=== PATIENT | female | born 2000 | race Caucasian/White ===

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

== ENCOUNTER 2021-07-17 14:09 | Emergency (ER) | payer SELFPAY ==
[~2021-07-17] VITALS: Ht 157.5 cm; Wt 46.0 kg
[2021-07-17 14:44] VITALS: BP 102/72
--- NOTE | 2021-07-17 14:51 | NUR ---
BREAK RN. PT AMBULATORY TO RESTROOM WITH STEADY GAIT FOR UA SAMPLE. LAB AT BEDSIDE. RAW FINISH MILL OPERATOR AT BEDSIDE FOR EKG
--- NOTE | 2021-07-17 14:57 | NUR ---
BREAK RN FOR PRIMARY RN KYARA. "I'M HERE FOR MY HEAD, I TOOK SOME PILLS LAST NIGHT, DIDN'T KNOW THE SIDE EFFECTS AND HOW IT WOULD AFFECT ME TODAY WITH THE DRINKING, TOOK ANTI-ANXIETY MED, ABOUT 300MG OF IT. I FELL DOWN LAST NIGHT, DID NOT HIT MY HEAD OR PASS OUT." DENIES SI/HI AT THIS TIME. VSS. URINE COLLECTED AND WALKED TO LAB. AUNT AT BEDSIDE. PER AUNT "SHE TOLD ME SHE TRIED TO COMMIT SUICIDE LAST NIGHT, WE DON'T KNOW WHAT OR HOW MUCH SHE TOOK OF PILLS MIXED WITH ALCOHOL LAST NIGHT." ERP MARYLU PA AWARE OF PT AND AUNT STATEMENTS. PT AWAITING PSYCH EVALUATION. CALL LIGHT IN REACH. FALL PRECAUTIONS IN PLACE.
[2021-07-17] MEDS ORDERED: ACETAMINOPHEN 325 MG TABLET PO ONE (15:00)
[2021-07-17] MEDS ORDERED: KETOROLAC 30 MG/1 ML IM ONE (15:00)
[2021-07-17 15:04] LABS: BASOPHILS % (AUTO) 1 % (0-1); EOSINOPHILS % (AUTO) 2 % (1-7); LYMPHOCYTES % (AUTO) 34 % (22-44); MEAN CORPUSCULAR HGB CONC 32.8 g/dL (32.4-35.8); MEAN PLATELET VOLUME 8.1 fL (7.4-10.4); MONOCYTES % (AUTO) 7 % (2-9); NEUTROPHILS % (AUTO) 56 % (42-75); PLATELET COUNT 324 x10^3/uL (130-400); RED BLOOD COUNT 4.91 x10^6/uL (3.82-5.3)
[2021-07-17 15:09] LABS: ALANINE AMINOTRANSFERASE 18 U/L (12-78); ALBUMIN 3.3 g/dL (3.4-5.0); ANION GAP 5 mmol/L (5-15); CALCIUM 8.5 mg/dL (8.5-10.1); CHLORIDE 109 mmol/L (98-107); CREATININE 0.73 mg/dL (0.55-1.02)
[2021-07-17 15:10] LABS: SALICYLATE LEVEL < 1.7 mg/dL (2.8-20.0)
[2021-07-17 15:14] LABS: ALKALINE PHOSPHATASE 73 U/L (45-117); BILIRUBIN,TOTAL 0.9 mg/dL (0.2-1.0); TOTAL PROTEIN 7.4 g/dL (6.4-8.2)
[2021-07-17 15:26] LABS: AMPHETAMINE SCREEN, URINE Negative (Negative); BARBITURATE SCREEN, URINE Negative (Negative); BENZODIAZEPINE SCREEN, URINE Negative (Negative); CANNABINOID SCREEN, URINE Positive (Negative); COCAINE SCREEN, URINE Negative (Negative); METHADONE SCREEN, URINE Negative (Negative); OPIATE SCREEN, URINE Negative (Negative)
--- NOTE | 2021-07-17 15:38 | NUR ---
REPORT AND CARE BACK TO PRIMARY RN KYARA AT THIS TIME
--- NOTE | 2021-07-17 16:45 | NUR ---
PSYCH RN CASE MGR AT BEDSIDE NO CHANGE IN PHYSICAL EXAM
[2021-07-17] MEDS ORDERED: ARIPIPRAZOLE 2 MG TABLET PO ONE (17:30)
[2021-07-17] MEDS ORDERED: ARIPIPRAZOLE 5 MG TABLET ONE (17:31)
[2021-07-17] MEDS ORDERED: KETOROLAC 30 MG/1 ML ONE (17:31)
[2021-07-17] MEDS ORDERED: ACETAMINOPHEN 325 MG TABLET ONE (17:31)
[2021-07-17] MEDS ORDERED: HYDR25CA PO (17:55)
[2021-07-17] MEDS ORDERED: ARIP5TAB13 PO (17:55)
--- NOTE | 2021-07-17 18:28 | NUR ---
NO ILL EFFECTS POST MEDICATION "I ACTUALLY FEEL MUCH BETTER." REVIEWED F/U PLAN. TEACH BACK SUCCESSFUL
== END 2021-07-17 18:31 | disposition home or self-care (01) ==
LOC: ED 15:07
DX: S09.90XA Unspecified injury of head, initial encounter (principal); F32.9 Major depressive disorder, single episode, unspecified; R94.31 Abnormal electrocardiogram [ECG] [EKG]; Y04.8XXA Assault by other bodily force, initial encounter; Y93.89 Activity, other specified; Y92.89 Other specified places as the place of occurrence of the external cause; Y99.8 Other external cause status
CPT/HCPCS: 36415; 80053; 80299; 80307; 80320; 80329; 84703; 85025; 93005; 96372; 99284; J1885; G0480